=== PATIENT | male | born 2000 | race Caucasian/White ===

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

== ENCOUNTER → 2021-09-09 10:09 | Outpatient (CLI) | payer OTHER, SELFPAY ==
--- NOTE | ~2021-09-09 | US_ITS ---
US breast RT limited DATE: 09/09/2021 10:49 INDICATION: Right breast lump for a few months beneath the nipple TECHNIQUE: Ultrasound imaging targeted at the area of clinical complaint at 6:00 subareolar location COMPARISON: None FINDINGS: There is a parallel circumscribed hypoechoic area with central hyperechogenicity suggesting fatty within the subcutaneous adipose tissue at 6:00 subareolar area, measuring up to 1.5 x 5 x 4 mm approximate dimension, with no internal vascularity or posterior shadowing. This has a benign appear ance, possibly a sebaceous cyst or subcutaneous lymph node. Consider 6 month ultrasound follow-up. IMPRESSION: BI-RADS Category 3: Probably benign Consider 6 month targeted ultrasound follow-up Reviewed, dictated and finalized at [facility] Reviewed, dictated and finalized at [facility].
== END ==
PROVIDERS: PCP Family Medicine; Visit Provider Nurse Practitioner Family
DX: N63.41 Unspecified lump in right breast, subareolar (principal)
CPT/HCPCS: 76642

== ENCOUNTER 2021-09-17 10:00 | Emergency (ER) | payer OTHER, SELFPAY ==
[2021-09-17 10:12] VITALS: BP 108/68; PULSE 77; RESP 18; TEMP 36.4; O2SAT 96
--- NOTE | 2021-09-17 10:15 | ED.URI ---
HPI - URI/Sore Throat General Chief Complaint: Upper Respiratory Infection Stated Complaint: sorethroat Time Seen by Provider: 09/17/21 10:15 Source: patient, RN notes reviewed and old records reviewed Mode of arrival: ambulatory Limitations: no limitations History of Present Illness HPI Narrative: 21 year old male accompanied by father presents to express care with complaints of sore throat for the past 5-6 days with pain increasing so bad last night he could not sleep.Patient states that he has had some nasal drainage and he has pressure to his ears bilaterally. Patient has noted swelling to the right side of his neck which is tender to palpation, rates his throat pain 8/10. Patient denies any known fevers, chills or sweats, denies any body aches. Patient has received both of his COVID immunizations. MD elicited complaint: sore throat, rhinorrhea and other (right lymphadenopathy) Pertinent past history: seasonal allergies Onset (ago): day(s) (5-6) Consistency: progressively worsening Severity: severe Pain scale (0-10): 8 Related Data Allergies Allergy/AdvReac Type Severity Reaction Status Date / Time No Known Allergies Allergy Unknown Verified 09/17/21 10:07 Review of Systems Review of Systems: CONSTITUTIONAL: Denies fever, chills, or sweats. EYES: Denies visual changes, redness, or discharge. ENT: Positive for rhinorrhea, congestion, sore throat, bilateral ear pressure. CARDIOVASCULAR: Denies chest pain, palpitations, or edema. RESPIRATORY: Denies cough or dyspnea. GASTROINTESTINAL: Denies abdominal pain, nausea, vomiting, or diarrhea. GENITOURINARY: Denies dysuria or hematuria. SKIN: Denies rash or itching. MUSCULOSKELETAL: Denies back pain, joint pain, or myalgia. NEUROLOGIC: Denies headache, numbness, or weakness. PSYCHIATRIC: Denies anxiety or depression. All systems reviewed & are unremarkable except as noted in HPI and below PMFSH Past Medical History Medical History (Updated 09/17/21 @ 10:51 by Kenya Branham NP) Encounter to establish care Foot fracture, right Lump or mass in breast Seasonal allergies Subareolar lump of right breast Surgical History Surgical History (Updated 09/17/21 @ 10:21 by Kenya Branham NP) History of placement of ear tubes Family History Family History (Updated 09/17/21 @ 11:09 by Kenya Branham NP) Other No significant family history Social History Social History Smoking status: Never smoker Alcohol intake: never Substance use: never Substance use type: does not use Comments At time of signature, agree with nursing past medical, surgical, social and family history. There is no relevant family history pertinent to the presenting complaint Exam Narrative: GENERAL: Well-appearing, well-nourished, and in no acute distress. HEAD: Normocephalic, atraumatic. EYES: PERRLA and EOMI. ENT: Nares red with swollen turbinates, clear to light yellow rhinorrhea no epistaxis. Mucous membranes moist. TM's normal with good light reflex, throat red with painful swallowing, no lesions or exudates, uvula swollen with tonsils red and swollen. NECK: Supple.lymphadenopathy to right side of neck with tenderness CHEST: Clear to auscultation. No respiratory distress.SAO2 96% on room air HEART: Regular rate and rhythm. No murmur heard. Normal peripheral pulses. ABDOMEN: Soft, nontender, nondistended, normal active bowel sounds. EXTREMITIES: Normal range of motion. No edema. SKIN: Warm, dry, no rash. NEURO: No focal deficits. Alert and oriented x3. Course Vital Signs Vital signs: Vital Signs Temperature 36.4 C L 09/17/21 10:12 Pulse Rate 77 09/17/21 10:12 Respiratory Rate 18 09/17/21 10:12 Blood Pressure 108/68 09/17/21 10:12 Pulse Oximetry 96 09/17/21 10:12 Temperature 36.4 C L 09/17/21 10:12 Pulse Rate 77 09/17/21 10:12 Respiratory Rate 18 09/17/21 10:12 Blood Pressure 108/68 09/17/21
== END 2021-09-17 11:00 | disposition home or self-care (01) ==
PROVIDERS: Emergency Provider Registered Nurse; PCP Family Medicine
DX: J03.90 Acute tonsillitis, unspecified (principal); J06.9 Acute upper respiratory infection, unspecified
CPT/HCPCS: 36416; 86308; 87081; 87880; 99213; G0463

== ENCOUNTER 2022-12-23 13:37 | Emergency (ER) | payer BC, SELFPAY ==
[2022-12-23 13:51] VITALS: BP 119/61; PULSE 63; RESP 18; TEMP 36.7; O2SAT 100
--- NOTE | 2022-12-23 14:24 | ED.URI ---
HPI - URI/Sore Throat General Chief Complaint: Upper Respiratory Infection Stated Complaint: sorethroat,nasal congestion Time Seen by Provider: 12/23/22 14:15 Source: patient, RN notes reviewed and old records reviewed Mode of arrival: ambulatory Limitations: no limitations History of Present Illness HPI Narrative: A 22-year-old male presents to [facility] with 3 day history of sore throat and nasal congestion, fevers, chills and body aches with father testing positive for COVID yesterday. Patient reports that this is the 3rd day of symptoms for him. He reports that he did not have a fever today when he arrived and has not taken any Tylenol or Ibuprofen for his symptoms today.Patient reports that cough has been productive of light yellow mucous, denies any shortness of breath, no tachypnea noted with SAO2 100% on room air. He states would like some medication for fever sores has history of recurrent fever sores with one noted to corner of left side of mouth at this time. MD elicited complaint: fever, sore throat and nasal congestion Onset (ago): day(s) (day 3 of symptoms) Pain scale (0-10): 5 Able to tolerate fluids by mouth: Yes Treatments prior to arrival: acetaminophen, ibuprofen and other (NyQuil) Related Data Allergies Allergy/AdvReac Type Severity Reaction Status Date / Time No Known Allergies Allergy Unknown Verified 12/23/22 13:51 Review of Systems Review of Systems: CONSTITUTIONAL: Reports malaise, chills, sweats, or fever. EYES: Denies visual changes, redness, or discharge. ENT: Reports rhinorrhea, congestion, sinus pain,no otalgia positive for sore throat. CARDIOVASCULAR: Denies chest pain, palpitations, or edema. RESPIRATORY: Reports cough.? Denies dyspnea. GASTROINTESTINAL: Denies abdominal pain, nausea, vomiting, diarrhea SKIN: Denies rash or itching. MUSCULOSKELETAL: Positive for myalgia. NEUROLOGIC: Positive for headache. All systems reviewed & are unremarkable except as noted in HPI and below PMFSH Past Medical History Medical History Encounter to establish care Foot fracture, right Lump or mass in breast Seasonal allergies Subareolar lump of right breast Surgical History Surgical History (Updated 09/17/21 @ 10:21 by Kenya Branham NP) History of placement of ear tubes Family History Family History (Updated 09/17/21 @ 11:09 by Kenya Branham NP) Other No significant family history Social History Social History Smoking status: Never smoker Alcohol intake: never Substance use: never Substance use type: does not use Comments At time of signature, agree with nursing past medical, surgical, social and family history. There is no relevant family history pertinent to the presenting complaint Exam Narrative: GENERAL: Well-appearing, well-nourished, and in no acute distress. HEAD: Normocephalic EYES: PERRLA, conjunctivae clear ENT: Nares clear, turbinates edematous and erythematous, clear light yellow discharge. Mucous membranes moist. TM pearly stein with dull light reflex bilaterally; no tragal tenderness. Oropharynx erythematous without lesions. Tonsils red minimally enlarged and without exudate, no drooling, no hoarseness, no trismus, uvula midline, post nasal drainage NECK: Supple. No lymphadenopathy CHEST: Clear to auscultation, breath sounds equal. No wheezing, rhonchi, rales, or stridor. No respiratory distress, speaks in full sentences.productive cough, SAO2 100% on room air HEART: Regular rate and rhythm. No murmur heard. SKIN: Warm, dry, no rash. NEURO: Alert and oriented x3. PSYCH: Normal mood and affect Course Course Emergency Course: Patient is aware of diagnosis, understands and agrees to treatment plan.? Anticipatory guidance given.? Patient agrees to follow-up as directed and is aware of reasons to seek care at the emergency d
== END 2022-12-23 14:40 | disposition home or self-care (01) ==
PROVIDERS: Emergency Provider Registered Nurse; PCP Nurse Practitioner Family
DX: U07.1 COVID-19 (principal)
CPT/HCPCS: 87426; 99213; C9803; G0463

== ENCOUNTER 2024-01-08 15:33 | Emergency (ER) | payer BC, SELFPAY ==
--- NOTE | 2024-01-08 15:39 | ED.URI ---
HPI - URI/Sore Throat General Chief Complaint: Upper Respiratory Infection Stated Complaint: Sore Throat, Congestion,Cough Time Seen by Provider: 01/08/24 15:45 Source: patient, RN notes reviewed and old records reviewed Mode of arrival: ambulatory Limitations: no limitations History of Present Illness HPI Narrative: 23-year-old male presents to the [facility] with complaints of sore throat, congestion, postnasal drainage and a cough for almost a week. Denies any fevers. Has taken DayQuil and NyQuil Related Data Home Medications Medication Instructions Recorded Confirmed No Home Medications 01/08/24 01/08/24 Allergies Allergy/AdvReac Type Severity Reaction Status Date / Time No Known Allergies Allergy Unknown Verified 01/08/24 15:38 Review of Systems Review of Systems: All systems reviewed & are unremarkable except as noted in HPI and below Constitutional: Constitutional: Reports no additional constitutional complaints Eyes: Eyes: Reports no additional eye complaints ENT: Reports as per HPI, Reports nasal congestion, Reports nasal discharge and Reports sore throat Cardiovascular: Cardiovascular: Reports no additional cardiovascular complaints, Denies chest pain and Denies dyspnea Respiratory: Respiratory: Reports as per HPI, Denies chest congestion, Reports cough and Denies dyspnea Gastrointestinal: Gastrointestinal: Reports no additional gastrointestinal complaints, Denies abdominal pain, Denies nausea and Denies vomiting Musculoskeletal: Musculoskeletal: Reports no additional musculoskeletal complaints Integumentary/Breasts: Skin/Breast: Reports system reviewed and no additional complaints, except as docu Neurologic: Reports system reviewed and no additional complaints, except as documented Psychiatric: Psychiatric: Reports no additional psychiatric complaints Allergic/Immunologic: Allergic/Immunologic: Reports no additional allergic/immunologic complaints PMFSH Past Medical History Medical History Encounter to establish care Foot fracture, right Lump or mass in breast Seasonal allergies Subareolar lump of right breast Surgical History Surgical History History of placement of ear tubes Family History Family History Other No significant family history Social History Social History Smoking status: Never smoker Alcohol intake: never Substance use: never Substance use type: does not use Comments At the time of my signature, I reviewed and agree with the nursing past medical, surgical, social, and family history. There is no relevant family history pertinent to the patient complaint. Exam Const: General: cooperative, healthy appearing, comfortable, no acute distress, well developed, alert and well nourished Nutritional Appearance: well nourished Orientation/consciousness: patient oriented x3 Limitations: no limitations HENMT: Head: normal to inspection Ears: hearing grossly normal bilaterally, external ears normal, TM's normal bilaterally, EAC's normal, mastoids normal and no periauricular adenopathy Face/Nose/Sinus: Normal external nose present, Normal nares present, Normal nasal mucous membranes and turbinates present, normal facial exam and face symmetric Face and sinus: normal facial exam and face symmetric Mouth: Yes Normal oral and palatal mucosa present, Yes lip normal and Yes moist mucous membranes Throat: posterior oropharynx normal, tonsils normal, uvula midline, postnasal drainage and no uvular edema Eyes: General: appearance normal, both eyes and all related structures Alignment and Position: alignment normal Periorbital: periorbital findings normal Pupils: Equal, round and reactive pupils present EOM: EOMs intact bilaterally Neck: Neck: normal visua
[2024-01-08 15:44] VITALS: BP 120/77; PULSE 64; RESP 16; TEMP 36.2; O2SAT 99
== END 2024-01-08 15:57 | disposition home or self-care (01) ==
PROVIDERS: Emergency Provider Nurse Practitioner; PCP Nurse Practitioner Family
DX: J02.9 Acute pharyngitis, unspecified (principal); R09.82 Postnasal drip
CPT/HCPCS: 87081; 87880; 99213; G0463